=== PATIENT | female | born 1955 | race Caucasian/White ===

== ENCOUNTER → 2017-06-13 17:54 | Outpatient (CLI) | payer MEDICARE | END | disposition home or self-care (01) | LOC: D.MAMMO 11:00 | DX: Z12.31 Encounter for screening mammogram for malignant neoplasm of breast (principal) ==

== ENCOUNTER 2017-11-28 13:10 | Day surgery (SDC) | payer MEDICARE ==
[~2017-11-28] VITALS: Ht 175.3 cm; Wt 88.6 kg
--- NOTE | ~2017-11-28 | OP ---
PATIENT NAME: LAUREN HWANG MEDICAL RECORD: [id number] :57 LOCATION:D.FORMERLY [facility] [place] ADMISSION DATE: SURGEON: JESSY NGUYỄN MD DATE OF OPERATION: 11/28/2017 PROCEDURE: Colonoscopy with polypectomy, colonoscopy with biopsy. RIBBON LAPPER TENDER: Jessy Nguyễn MD, gastroenterology SCOPE: Olympus video colonoscope. MEDICATIONS: Per TIVA anesthesia. The patient received 120 mg of propofol for this procedure, O2 at 4 liters. INDICATION FOR THE PROCEDURE: Screening. FINDINGS: Informed consent was given. The patient was made comfortable with the above medications. After reaching an adequate level of sedation by slow IV push, the patient was placed on the left side. The rectal exam revealed good sphincter tone. No fissures or fistulas were appreciated. No external skin tags were seen. The colonoscope was advanced to the cecum, where ileocecal valve and appendiceal orifice were identified. The small bowel was intubated and tissue was normal. On withdrawal of the scope, mucosa was carefully inspected. The patient had a 0.5-cm polyp in the cecum near the appendiceal orifice and this was gently removed with hot biopsy forceps technique. On the ileocecal valve, some mild inflammation was appreciated and biopsy was obtained. This was an isolated finding. On withdrawal of the scope, the patient had 1 or 2 very shallow diverticula on the left side of the colon and these were photographed. Within the rectal vault and on retroflexion, internal hemorrhoids were noted. The scope was then withdrawn. IMPRESSION: 1. Cecum, terminal ileum, appendiceal orifice, and ileocecal valve identified and photographed. 2. A 0.5-cm polyp in the cecal area close to the appendiceal orifice, biopsied with hot biopsy forceps technique and polyp removed and sent to pathology for review. 3. Very minimal colitis on the ileocecal valve, biopsied and path sent. 4. Few left-sided diverticula, very small, in the sigmoid area. No evidence of infection. 5. Mild internal hemorrhoids. PLAN: 1. No anti-inflammatory drugs or aspirin for 14 days. 2. High-fiber diet. 3. Probiotics. 4. Colonoscopy in 3 years. Return to clinic on a p.r.n. basis. TRANSINT:[id number] Voice Confirmation ID: [id number] DOCUMENT ID: [id number] OPERATIVE REPORT [id number] HWANGLAUREN RUGGIERO BRENDA MD at 1319 CC: PHUONG KESSLER MD [id number] DICTATION DATE: 11/28/17 1647 HIGH CLIMBER: 11/28/17 1749 [facility] 11/28/17 [place] [id number] [facility] [place] [address]
[2017-11-28 13:35] LABS: HEMATOCRIT 42.6 % (36.0-48.0); HEMOGLOBIN 14.5 g/dL (12-16); MCH 30.8 pg (26.0-34.0); MCV 90.4 fL (80.0-100.0); MEAN PLATELET VOLUME 11.1 fL (7.4-10.4); PLATELET COUNT 134 10x3/uL (130-400); RBC 4.71 10x6/uL (4.00-5.40); RDW 15.7 % (11.5-14.5); WBC 12.9 10x3/uL (4.8-10.8)
[2017-11-28 13:47] LABS: CALC OSMOLALITY 274 mosm/kg (275-300); CALCIUM 9.1 mg/dL (8.5-10.1); CARBON DIOXIDE 23.1 mmol/L (21.0-32.0); CHLORIDE - SERUM 106 mmol/L (98-107); CREATININE - SERUM 0.8 mg/dL (0.6-1.3); GLUCOSE 100 mg/dL (74-106); POTASSIUM - SERUM 3.4 mmol/L (3.5-5.1); SODIUM 139 mmol/L (136-145); UREA NITROGEN 3 mg/dL (7-18); eGFR NON AFRICAN AMERICAN 77 mL/min (90-120)
[2017-11-28 14:10] LABS: EOSINOPHILS 3 % (0-7); LYMPHOCYTES 53 % (15-50); MONOCYTES 6 % (2-11); NEUTROPHILS 38 % (40-80); PLATELET ESTIMATE NORMAL
[2017-11-28 15:50] VITALS: BP 146/84; Ht 175.3 cm; Wt 88.6 kg
[2017-11-28] MEDS ORDERED: VALIUM5 MG PO (16:01)
[2017-11-28] MEDS ORDERED: LIPITOR40 MG PO (16:02)
[2017-11-28] MEDS ORDERED: ZOLOFT100 MG PO (16:03)
[2017-11-28] MEDS ORDERED: METHOTREXATE2.5 MG PO (16:03)
[2017-11-28] MEDS ORDERED: RISPERDAL2 MG PO (16:04)
[2017-11-28] MEDS ORDERED: BUPROPION XL150 MG (16:04)
[2017-11-28] MEDS ORDERED: FOLATE0.4 MG PO (16:05)
[2017-11-28] MEDS ORDERED: TOPAMAX100 MG PO (16:06)
== END 2017-11-28 17:35 | disposition home or self-care (01) ==
LOC: D.OPS 13:10
PROVIDERS: Internal Medicine Gastroenterology
DX: K63.5 Polyp of colon (principal); K52.89 Other specified noninfective gastroenteritis and colitis; K57.30 Diverticulosis of large intestine without perforation or abscess without bleeding; K64.8 Other hemorrhoids; Z01.812 Encounter for preprocedural laboratory examination; Z12.11 Encounter for screening for malignant neoplasm of colon

== ENCOUNTER → 2019-04-30 12:19 | Outpatient (CLI) | payer MEDICARE ==
[2017-11-28 15:50] VITALS: BMI 28.8
[~2019-04-30 12:19] MED LIST: BUPROPION XL150 MG; FOLATE0.4 MG PO; LIPITOR40 MG PO; METHOTREXATE2.5 MG PO; RISPERDAL2 MG PO; TOPAMAX100 MG PO; VALIUM5 MG PO; ZOLOFT100 MG PO
== END | disposition home or self-care (01) ==
LOC: D.NM 04-29 13:00
PROVIDERS: ATTEND Family Medicine
DX: R10.11 Right upper quadrant pain (principal)

== ENCOUNTER → 2019-10-05 07:23 | Outpatient (CLI) | payer MEDICARE ==
[2017-11-28 15:50] VITALS: BMI 28.8
[2019-10-05 07:57] LABS: ALBUMIN 3.8 g/dL (3.4-5.0); BILIRUBIN - INDIRECT 0.21 mg/dL (0.00-1.00); BILIRUBIN - TOTAL 0.26 mg/dL (0.2-1.3); PROTEIN - SERUM 7.2 g/dL (6.4-8.2)
[2019-10-05 08:00] LABS: BILIRUBIN - DIRECT 0.05 mg/dL (0.00-0.30)
== END | disposition home or self-care (01) ==
LOC: D.US 09-18 09:30
PROVIDERS: ATTEND Family Medicine
DX: K76.0 Fatty (change of) liver, not elsewhere classified (principal); Z12.31 Encounter for screening mammogram for malignant neoplasm of breast

== ENCOUNTER → 2019-12-22 07:38 | Outpatient (CLI) | payer MEDICARE ==
[2017-11-28 15:50] VITALS: BMI 28.8
== END | disposition home or self-care (01) ==
LOC: D.CT 07:38
PROVIDERS: ATTEND Psychiatry & Neurology Neurology
DX: M54.2 Cervicalgia (principal); M79.2 Neuralgia and neuritis, unspecified